=== PATIENT | male | born 1975 | race Caucasian/White ===

== ENCOUNTER → 2021-08-22 | Outpatient (CLI) | payer OTHER | LOC: LAB SHORT 08:16 | DX: B35.1 Tinea unguium (principal) | CPT/HCPCS: 88305; 88312 ==

== ENCOUNTER → 2023-04-12 | Outpatient (CLI) | payer BC ==
[2023-04-14 00:11] LABS: CHLAMYDIA TRACHOMATIS, NAA Negative (Negative)
== END | disposition home or self-care (01) ==
LOC: LAB 11:30 → LAB SHORT 11:30
PROVIDERS: Nurse Practitioner Family
DX: Z11.3 Encounter for screening for infections with a predominantly sexual mode of transmission (principal)
CPT/HCPCS: 87491; 87591